=== PATIENT | female | born 1990 | race Caucasian/White ===

== ENCOUNTER 2019-06-08 05:28 | Inpatient (IN) | payer BC, OTHER ==
[2019-06-07 08:37] VITALS: BMI 31.7
--- NOTE | 2019-06-08 06:59 | HP ---
History & Physical Update - Physical Physical: No Change - Assessment Assessment: No Change - Plan Plan: No Change (H&P reviwed , no changes noted)
[2019-06-08] MEDS ORDERED: LIDOCAINE HCL 1%, 10 MG/ML (20ML VIAL) ONE (07:28)
[2019-06-08] MEDS ORDERED: BUPIVACAINE HCL/PF 0.5% (5 MG/ML) 30 ML VIAL IJ ONE ×2 (07:28→09:35)
[2019-06-08] MEDS ORDERED: MIDAZOLAM HCL 2 MG/2 ML SINGLE DOSE VIAL ONE (07:42)
[2019-06-08] MEDS ORDERED: ROCURONIUM BROMIDE 50 MG/5 ML SYRINGE ONE ×2 (08:04→09:08)
[2019-06-08] MEDS ORDERED: PROPOFOL 20 ML ONE ×2 (08:04)
[2019-06-08] MEDS ORDERED: fentaNYL CITRATE 250 MCG/5 ML VIAL ONE (08:05)
[2019-06-08] MEDS ORDERED: DEXAMETHASONE SOD PHOSPHATE 4 MG/1 ML VIAL ONE (08:05)
[2019-06-08] MEDS ORDERED: KETOROLAC TROMETHAMINE 30 MG/1 ML VIAL ONE (08:05)
[2019-06-08] MEDS ORDERED: LIDOCAINE HCL/PF 2% SDV 5ML VIAL ONE (08:05)
[2019-06-08] MEDS ORDERED: ceFAZolin SODIUM 1 GM VIAL ONE ×2 (08:05)
[2019-06-08] MEDS ORDERED: ceFAZolin SODIUM 1 GM VIAL IVPB ONE (08:21)
[2019-06-08] MEDS ORDERED: NEOSTIGMINE METHYLSULFATE 0.5 MG/ML - 10 ML MDV ONE (09:34)
[2019-06-08] MEDS ORDERED: GLYCOPYRROLATE 0.2 MG/1 ML VIAL ONE ×2 (09:34)
--- NOTE | 2019-06-08 09:54 | OP ---
Operative Note - Note: Operative Date: 06/08/19 Pre-Operative Diagnosis: Left groin pain , Rule out incisional hernia / endometriosis. Operation: Diagnostic laparascopy, biopsy of scar tissue in left groin. Findings: Normal pelvis and pelvic organs, No abdominal hernia. No intraabdominal adhesions. Post-Operative Diagnosis: Same as Pre-op Surgeon: Aubree Spear) Group Work Program Director: Pedrito Abrams Anesthesiologist/BEVERAGE SPECIALIST: Good Saeed Anesthesia: General Specimens Removed: Scar tissue in left groin. Estimated Blood Loss (mls): 5 Operative Report Dictated: Yes
[2019-06-08] MEDS ORDERED: oxyCODONE HCL 5 MG TABLET PO PRN (09:55)
[2019-06-08] MEDS ORDERED: PROMETHAZINE HCL 25 MG/1 ML VIAL IVPUSH PRN (09:55)
[2019-06-08] MEDS ORDERED: ONDANSETRON 4 MG/2 ML VIAL IVPUSH PRN (09:55)
[2019-06-08 13:37] VITALS: BP 114/71; PULSE 61; TEMP 98.5
--- NOTE | 2019-06-08 14:22 | OP ---
DATE OF OPERATION: 06/08/2019 PREOPERATIVE DIAGNOSIS: Pain in the section scar in the left groin with findings on MRI suggestive of some scar tissue in the rectus muscle. POSTOPERATIVE DIAGNOSIS: No incisional hernia, no intraabdominal abnormalities, no intraperitoneal adhesions, and normal scar tissue OPERATIVE PROCEDURE: Diagnostic laparoscopy, incisional biopsy of scar tissue in the left groin. SURGEON: Parish Spear MD CO-SURGEON: Pedrito Abrams MD, who evaluated the pelvis. ANESTHESIA: General anesthesia. ANESTHESIOLOGIST: OPERATIVE DESCRIPTION: This 29-year-old woman had chronic pain in the left side of her section scar. There was no distinct abnormality found in this area. The MRI of the area suggested some irregularity in the lower portion of the left rectus muscle. No definite hernia could be demonstrated. The patient was brought in for diagnostic laparoscopy, possible repair of hernia, and excision of scar. Consent was obtained. Risks, benefits, and complications have been discussed with the patient many times. The patient was given general anesthesia. Under anesthesia, there was no hernia that was demonstrated. There was some suggestion of a small centimeter of scar tissue, but it was indefinite, in the left side of the scar of the section surgery. The abdomen was painted and draped. Incision was made in the infraumbilical portion of the umbilicus for about a centimeter. This was deepened inside the skin, subcutaneous tissue, the linea alba, and the peritoneum. The abdomen was inflated with carbon dioxide at 6 L per minute, with maximum intraabdominal pressure of 15 mmHg after introducing a 10-mm laparoscopic trocar of the Suhail type. Two stay sutures of 2-0 Vicryl were obtained to anchor the Suhail trocar to the abdominal wall. A 5-mm trocar was introduced was inserted into the abdominal cavity. There were no adhesions within the abdominal cavity. Under direct vision, another 5-mm trocar was inserted in the right side of the abdomen after making a small skin incision. This was noted, entry in the abdominal cavity under direct vision of the camera in the subumbilical port. The left lower quadrant was visualized. There was no swelling, no scar tissue, and no adhesions within the pelvis on both sides. Both ovaries were visualized and determined by Dr. Abrams to be normal. The large intestine was also normal. There was no irregularity in the left lower quadrant of the abdomen. The rest of the abdominal cavity was normal. Then a small incision was made on the skin on the left side of the section scar. This was deepened through the skin, subcutaneous tissue. There was no abnormality noted, no nodule or nodularity noted, nor a hernia. A specimen of scar tissue was sent to Pathology. The procedure was then completed. The linea alba in midline at the subumbilical port was approximated with interrupted 2-0 Vicryl sutures. The subcutaneous tissue was then approximated with buried interrupted 3-0 Vicryl sutures. The 5-mm port in the right side of the abdomen was also closed with 3-0 subcuticular Vicryl sutures. The scar in the left lower quadrant of the abdomen was also approximated with buried interrupted 3-0 Vicryl sutures. Estimated blood loss was less than 5 mL. Sponge count, instrument count was correct. There was no bleeding. Dermabond was applied across the skin edges. Patient tolerated the procedure well, was extubated and sent to the recovery room in satisfactory and stable condition. Coby ONTIVEROS/[id number] cc: Pedrito Abrams MD
[2019-06-09] MEDS ORDERED: ENOXAPARIN NA (PORCINE) 40 MG/0.4 ML DISP.SYRIN SQ SCH (10:00)
== END 2019-06-08 13:45 | disposition home or self-care (01) | DRG 581 ==
LOC: JSAMEDAYSX 05:28
PROVIDERS: ADMIT Obstetrics & Gynecology; ATTEND Obstetrics & Gynecology
PROC: 0WJJ4ZZ Inspection of Pelvic Cavity, Percutaneous Endoscopic Approach (ICD-10-PCS; 2019-06-08)
PROC: 0JBC0ZX Excision of Pelvic Region Subcutaneous Tissue and Fascia, Open Approach, Diagnostic (ICD-10-PCS; principal; 2019-06-08 08:00)
DX: L90.5 Scar conditions and fibrosis of skin (principal); E66.8 Other obesity; Z68.31 Body mass index [BMI] 31.0-31.9, adult
CPT/HCPCS: 84703; 86850; 86900; 86901; 88304-TC; 94760

== ENCOUNTER 2023-04-17 14:31 | Emergency (ER) | payer BC, OTHER ==
[2023-04-17 14:35] VITALS: RESP 18; BMI 33.2
[2023-04-17] MEDS ORDERED: SODIUM CHLORIDE 0.9% 1000 ML INFUS.BAG IV ONE (15:28)
[2023-04-17 16:07] LABS: BASO % 0.8 % (0-2.0); HEMATOCRIT 37.2 % (32.4-45.2); LYMPH % 39.2 % (8-40); MCH 27.6 pg (25.7-33.7); MCHC 32.2 g/dl (32.0-36.0); MEAN CELL VOLUME 85.6 fl (80-96); MONO % 7.4 % (3.8-10.2); NEUT % 48.6 % (42.8-82.8); PLATELET COUNT 343 10^3/uL (134-434); RBC 4.35 M/mm3 (3.60-5.2); RDW 13.8 % (11.6-15.6); WHITE BLOOD COUNT 7.7 K/mm3 (4.0-10.0)
[2023-04-17 16:09] LABS: POTASSIUM 4.4 mmol/L (3.5-5.1)
[2023-04-17 16:10] LABS: ALBUMIN 3.5 g/dl (3.4-5.0); BLOOD UREA NITROGEN 13.6 mg/dL (7-18); CALCIUM 9.1 mg/dL (8.5-10.1)
[2023-04-17 16:12] LABS: LIPASE 176 U/L (73-393)
[2023-04-17 16:13] LABS: AMYLASE 39 U/L (25-115); CREATININE 0.7 mg/dL (0.55-1.3)
[2023-04-17 16:15] LABS: BILIRUBIN,TOTAL 0.1 mg/dL (0.2-1)
[2023-04-17] MEDS ORDERED: MAG HYDROX/ALH/SMC/DPHA/LIDO 240 ML MOUTHWASH MM SCH (18:00)
[2023-04-17 18:09] VITALS: BP 118/77; PULSE 68; TEMP 97.2
== END 2023-04-17 19:40 | disposition home or self-care (01) ==
LOC: JER 14:31
DX: K29.00 Acute gastritis without bleeding (principal); R11.0 Nausea; R10.10 Upper abdominal pain, unspecified; R14.0 Abdominal distension (gaseous)
CPT/HCPCS: 36415; 74177-TC; 76705-TC; 80053; 82150; 83690; 84703; 85025; Q9967